=== PATIENT | male | born 1965 | race Two or more races ===

== ENCOUNTER 2017-06-15 23:28 | Emergency (ER) | payer OTHER ==
[~2017-06-15] VITALS: Ht 180.3 cm; Wt 70.3 kg
[2017-06-15 23:36] VITALS: BP 128/84
[2017-06-15] MEDS ORDERED: NKM (23:41)
[2017-06-15 23:55] VITALS: BP 128/84
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
== END 2017-06-15 23:55 ==
LOC: EDBD 23:28 → EMR 23:49
DX: S09.90XA Unspecified injury of head, initial encounter (principal); W50.0XXA Accidental hit or strike by another person, initial encounter; Y92.512 Supermarket, store or market as the place of occurrence of the external cause
CPT/HCPCS: 99283

== ENCOUNTER 2017-06-16 00:52 | Emergency (ER) | payer OTHER ==
[~2017-06-16] VITALS: Ht 180.3 cm; Wt 70.3 kg
[~2017-06-16 00:52] MED LIST: NKM
[2017-06-16 01:08] VITALS: BP 157/85
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
[2017-06-16 03:11] VITALS: BP 122/69
[2017-06-16 05:38] VITALS: BP 120/79
[2017-06-16 06:14] VITALS: BP 120/79
== END 2017-06-16 06:14 | disposition left against medical advice (07) ==
LOC: EDBD 00:52 → EMR 00:55
DX: T50.905A Adverse effect of unspecified drugs, medicaments and biological substances, initial encounter (principal); X58.XXXA Exposure to other specified factors, initial encounter; Y93.9 Activity, unspecified; Y92.9 Unspecified place or not applicable
CPT/HCPCS: 99283